=== PATIENT | male | born 1935 | race Caucasian/White ===

== ENCOUNTER 2016-10-12 17:01 | Emergency (ER) | payer OTHER ==
[~2016-10-12] VITALS: Ht 193 cm; Wt 120.0 kg
[~2016-10-12 17:01] MED LIST: ALLO300T2 PO; ASPI325T PO; DHEA50CA3 PO; DIGO0.12 PO; ENOX40P SQ; HYDR-3580 PO; KLOR20TA6 PO; LACT PO; LEVA500T PO; METO50CR PO; OMEP20TA PO; PERI8.6T PO; PRAD150C PO; TAMS0.4C67 PO; TORS1TAB12 PO; TREN400T PO
[2016-10-12 17:03] VITALS: BP 129/79; PULSE 68; RESP 20; TEMP 98; O2SAT 95
--- NOTE | 2016-10-12 17:09 | PD ---
Physical Exam Date Seen by Provider: Oct 12, 2016 Time Seen by Provider: 17:07 Narrative 81 yo male here for eval of fall. Happened yesterday. Hit head with no LOC. Takes Blood thinners. Concern about bleed secondary to headache. Pain is to the back of the head. No other symptoms. Pain is 6/10. Vitals are stable in triage. Awaiting bed placement. Data Data Last Documented VS Vital Signs Date Time Temp Pulse Resp B/P Pulse Ox O2 Delivery O2 Flow Rate FiO2 10/12/16 17:03 98.0 68 20 129/79 95 Room Air [facility] Medical Record Reviewed: Yes Supervised Visit with ANNE: No Roly Mata Oct 12, 2016 17:09
[2016-10-12] MEDS ORDERED: TRAM50TA PO (17:37)
[2016-10-12] MEDS ORDERED: APIX5TAB PO (17:37)
[2016-10-12] MEDS ORDERED: OXYC1TAB63 PO (17:39)
--- NOTE | 2016-10-12 17:39 | PD ---
HPI Chief Complaint: Fall Time Seen by Provider: 17:37 Travel History International Travel<30 days: No Contact w/Intl Traveler<30days: No Traveled to known affect area: No History of Present Illness HPI 81-year-old male presents to the emergency department for evaluation after a trip and fall that occurred yesterday. He states he was on a ladder and missed the last step. He states he landed on his butt, but then rolled over and hit his head against the refrigerator. He denies LOC. He does have abrasion to the top of his scalp. He states his tetanus immunization is within 5 years. Patient does complain of some midline neck pain as well. He denies any back pain. No chest pain or abdominal pain. No shortness of breath. He denies any hip or pelvic pain. He is on our questions and is concerned so he came the emergency department for evaluation. PFSH Past Medical History Hx Anticoagulant Therapy: Yes Arthritis: Yes Atrial Fibrillation: Yes Anxiety: Yes Heart Rhythm Problems: Yes (AFIB) Cancer: Yes (PROSTATE) Cardiovascular Problems: Yes (A. FIB) High Cholesterol: Yes Congestive Heart Failure: Yes (PT DENIES but hx says yes?) Diabetes: No Diminished Hearing: No Endocrine: No Gastrointestinal Disorders: Yes GERD: Yes Gout: Yes Genitourinary: Yes (PROSTATE(CA with seeds)) Hypertension: Yes Implanted Vascular Access Dvce: No Musculoskeletal: Yes Neurologic: No Psychiatric: Yes Respiratory: No Immunizations Current: No Radiation Therapy: Yes (2008 last treatment) Tetanus Vaccination: < 5 Years Influenza Vaccination: Yes (2016) PNEUMOCCOCAL Vaccine (Year): 1 Past Surgical History Abdominal Surgery: Yes (INTESTINAL BLOCKAGE 2013) Appendectomy: Yes (1979) Body Medical Devices: hx prostate CA with seeds Cholecystectomy: Yes (2006) Eye Surgery: Yes (CATARACT) Genitourinary Surgery: Yes (PROSTATE SEEDS) Joint Replacement: Yes (L KNEE REPLACEMENT 2008, R KNEE DEBRIDEMENT 2015) Tonsillectomy: Yes (1942) Other Surgery: Yes (CANCEROUS SWEAT GLAND REMOVED ) Social History Alcohol Use: Yes (ONE BEER A WEEK) Tobacco Use: No Substance Use: No Allergies-Medications (Allergen,Severity, Reaction): Coded Allergies: No Known Allergies (Verified , 10/12/16) Reported Meds & Prescriptions Reported Meds & Active Scripts Active Reported Torsemide 20 Mg Tab 20 Mg PO DAILY PRN Aspirin 325 Mg Tab 325 Mg PO DAILY Allopurinol 300 Mg Tab 300 Mg PO DAILY Digoxin 0.125 Mg Tab 0.125 Mg PO DAILY Omeprazole 20 Mg Tab 20 Mg PO DAILY Tamsulosin (Tamsulosin HCl) 0.4 Mg Cap 0.4 Mg PO HS Metoprolol Succinate ER 24 HR (Metoprolol Succinate) 50 Mg Tab 50 Mg PO BID Oxycodone-Acetaminophen 5-325 mg Tab 0.5 Tab PO Q4H PRN Tramadol (Tramadol HCl) 50 Mg Tab 50 Mg PO Q4H Eliquis (Apixaban) 5 Mg Tab 5 Mg PO BID Review of Systems Except as stated in HPI: all other systems reviewed are Neg Physical Exam Narrative GENERAL: Well-nourished, well-developed elderly male patient, afebrile. SKIN: Focused skin assessment warm/dry. Patient has abrasion to the top of his scalp. HEAD: Normocephalic. EYES: No scleral icterus. No injection or drainage. NECK: Supple, trachea midline. No JVD or lymphadenopathy. CARDIOVASCULAR: Regular rate and rhythm without murmurs, gallops, or rubs. RESPIRATORY: Breath sounds equal bilaterally. No accessory muscle use. Lungs sounds are clear to auscultation. GASTROINTESTINAL: Abdomen soft, non-tender, nondistended. MUSCULOSKELETAL: No cyanosis, or edema. BACK: No without obvious deformity. No CVA tenderness. Patient has mild midline cervical spine tenderness to palpation. No other midline spinal tenderness noted. Data Data Last Documented VS Vital Signs Date Time Temp Pulse Resp B/P Pulse Ox O2 Delivery O2 Flow Rate FiO2 10/12/16 17:03 98.0 68 20 129/[address] Brain W/O Iv Contrast(Rout) (10/12/16 ) Ct Cerv Spine W/O Contrast (10/12/16 ) Apply Cervical Collar (10/12/16 17:35) Collar Merrick (10/12/16 ) MDM Medical Decision Making Medical Screen Exam Complete: Yes Emergency Medical Condition: Yes Medical Record Reviewed: Yes Interpretation(s) Last Impressions Head CT 10/12/16 0000 Signed Impressions: Service Date/Time: Monday, October 12, 2016 18:08 - CONCLUSION: No acute intracranial injuries Bharat Starr MD Cervical Spine CT 10/12/16 0000 Signed Impressions: Service Date/Time: Wednesday, October 12, 2016 18:08 - CONCLUSION: No acute bony injury in the cervical spine. Bharat Starr MD Differential Diagnosis Closed head injury versus intracranial abnormality versus skull fracture versus cervical strain versus cervical fracture Narrative Course 81-year-old male presents to the emergency department for evaluation after he tripped and fell, hitting his head. He is on anticoagulants. CT of the brain and cervical spine are ordered and pending. Cervical collar is applied. CT of the brain shows no acute intracranial injuries. CT of the cervical spine shows no acute bony injury in the cervical spine. Cervical collar is removed. Patient is offered pain medication, but declines at this time. Patient is reassured and would like to go home. The patient was discharged in stable condition with instructions, including return instructions and follow up instructions. Diagnosis Primary Impression: Closed head injury Qualified Code: S09.90XA - Closed head injury, initial encounter Additional Impression: Scalp abrasion Qualified Code: S00.01XA - Scalp abrasion, initial encounter Referrals: Primary Care Physician call for appointment Patient Instructions: Abrasion (ED), General Instructions, Head Injury (ED) Additional Instructions: Clean abrasion twice daily with soap and water and apply [id number] antibiotic ointment. Follow-up with your primary care physician. Return to the emergency department for any acute worsening of symptoms. Med/Other Pt SpecificInfo: No Change to Meds Disposition: 01 DISCHARGE HOME Condition: Stable Eduarda Hart ANITA Oct 12, 2016 17:39
[2016-10-12] MEDS ORDERED: OMEP20TA PO (17:47)
[2016-10-12] MEDS ORDERED: ALLO300T2 PO (17:47)
[2016-10-12] MEDS ORDERED: ASPI325T PO (17:47)
[2016-10-12] MEDS ORDERED: METO50TA11 PO (17:47)
[2016-10-12] MEDS ORDERED: TAMS0.4C4 PO (17:47)
[2016-10-12] MEDS ORDERED: DIGO0.12 PO (17:47)
[2016-10-12] MEDS ORDERED: TORS20TA PO (17:47)
--- NOTE | 2016-10-12 18:18 | RADRPT ---
EXAM DATE/TIME: 10/12/2016 18:08 [facility] COMPARISON: CT BRAIN W/O CONTRAST, December 16, 2012, 18:56. INDICATIONS : Trauma. Fall. RADIATION DOSE: 37.17 CTDIvol (mGy) MEDICAL HISTORY : Cardiovascular disease. Hypertension. Carcinoma, prostate. SURGICAL HISTORY : None. ENCOUNTER: Initial ACUITY: 1 day PAIN SCALE: 5/10 LOCATION: cranial TECHNIQUE: Multiple contiguous axial images were obtained of the head. Using automated exposure control and adj ustment of the mA and/or kV according to patient size, radiation dose was kept as low as reasonably a chievable to obtain optimal diagnostic quality images. DICOM format image data is available electro nically for review and comparison. FINDINGS: Personal lacunar infarct in the right lentiform nucleus. Patchy mild diminished attenuation in perive ntricular white matter which appears chronic. There is no evidence of intracranial mass or hemorrhage . There is nothing to suggest acute infarction. The extracranial structures are benign and intact. No evidence of skull fracture. CONCLUSION: No acute intracranial injuries Bharat Starr MD on October 12, 2016 at 18:14 Board Certified Radiologist. This report was verified electronically.
--- NOTE | 2016-10-12 18:26 | RADRPT ---
EXAM DATE/TIME: 10/12/2016 18:08 [facility] COMPARISON: No previous studies available for comparison. INDICATIONS : Trauma. Fall. RADIATION DOSE: 21.56 CTDIvol (mGy) MEDICAL HISTORY : Cardiovascular disease. Hypertension. Carcinoma, prostate. SURGICAL HISTORY : None. ENCOUNTER: Initial ACUITY: 1 day PAIN SCALE: 5/10 LOCATION: neck TECHNIQUE: Volumetric scanning of the cervical spine was performed. Multiplanar reconstructions in the sagittal, coronal and oblique axial planes were performed. Using automated exposure control and adjustment o f the mA and/or kV according to patient size, radiation dose was kept as low as reasonably achievable to obtain optimal diagnostic quality images. DICOM format image data is available electronically f or review and comparison. FINDINGS: The cervical spine alignment is satisfactory. There is no evidence of cervical spine fracture. No bon y canal or foraminal stenosis is noted. There is mild degenerative changes small predominantly ventra l endplate osteophytes at multiple levels. Mild posterior facet arthropathy at multiple levels. No ev idence of paraspinal hematoma. CONCLUSION: No acute bony injury in the cervical spine. Bharat Starr MD on October 12, 2016 at 18:20 Board Certified Radiologist. This report was verified electronically.
== END 2016-10-12 18:54 | disposition home or self-care (01) ==
LOC: NEPD 17:01
DX: S09.90XA Unspecified injury of head, initial encounter (principal); S00.01XA Abrasion of scalp, initial encounter; M54.2 Cervicalgia; I10 Essential (primary) hypertension; E78.00 Pure hypercholesterolemia, unspecified; W11.XXXA Fall on and from ladder, initial encounter; Z79.01 Long term (current) use of anticoagulants; Z87.39 Personal history of other diseases of the musculoskeletal system and connective tissue; Z86.79 Personal history of other diseases of the circulatory system; Z86.59 Personal history of other mental and behavioral disorders; Z87.19 Personal history of other diseases of the digestive system; Z87.438 Personal history of other diseases of male genital organs
CPT/HCPCS: 70450; 72125; 99284; L0150

== ENCOUNTER 2017-05-14 10:50 | Emergency (ER) | payer OTHER ==
[~2017-05-14 10:50] MED LIST changes: +APIX5TAB PO; +ASPI-183 PO; -ASPI325T PO; -DHEA50CA3 PO; -ENOX40P SQ; -HYDR-3580 PO; -KLOR20TA6 PO; -LACT PO; -LEVA500T PO; +METO1TAB9 PO; -METO50CR PO; -OMEP20TA PO; +OMEP20TA93 PO; +OXYC1TAB63 PO; -PERI8.6T PO; -PRAD150C PO; +TAMS0.4C4 PO; -TAMS0.4C67 PO; -TORS1TAB12 PO; +TORS20TA PO; +TRAM50TA PO; -TREN400T PO
--- NOTE | 2017-05-14 11:47 | PD ---
HPI Chief Complaint: Respiratory Symptoms Time Seen by Provider: 11:47 Travel History International Travel<30 days: No Contact w/Intl Traveler<30days: No Traveled to known affect area: No History of Present Illness HPI 81-year-old male came to the emergency room with his with history of cough , headache, generalized weakness and mild fever for past 3 days. Patient says last year he had something similar which he did not initially come in to be seen and turned out to be a nasty pneumonia after week and hence he wanted to be more proactive this time. Patient's oxygen saturation was 92% on room air. No history of asthma or COPD. He is not a smoker. He does not require oxygen at home. No history of vomiting or diarrhea. He is awake and answering questions appropriately. Does not appear to be in any significant distress. Patient has history of atrial fibrillation and is on Eliquis. [facility] Past Medical History Narrative Medical List of his past medical, surgical, social and family history is reviewed from the nursing note. Hx Anticoagulant Therapy: Yes Arthritis: Yes Atrial Fibrillation: Yes Anxiety: Yes Heart Rhythm Problems: Yes (AFIB) Cancer: Yes (PROSTATE) Cardiovascular Problems: Yes (A. FIB) High Cholesterol: Yes Congestive Heart Failure: Yes (PT DENIES but hx says yes?) Diabetes: No Diminished Hearing: No Endocrine: No Gastrointestinal Disorders: Yes GERD: Yes Gout: Yes Genitourinary: Yes (PROSTATE(CA with seeds)) Hypertension: Yes Implanted Vascular Access Dvce: No Musculoskeletal: Yes Neurologic: No Psychiatric: Yes Respiratory: No Immunizations Current: No Radiation Therapy: Yes (2008 last treatment) PNEUMOCCOCAL Vaccine (Year): 1 Past Surgical History Abdominal Surgery: Yes (INTESTINAL BLOCKAGE 2013) Appendectomy: Yes (1979) Body Medical Devices: hx prostate CA with seeds Cholecystectomy: Yes (2006) Eye Surgery: Yes (CATARACT) Genitourinary Surgery: Yes (PROSTATE SEEDS) Joint Replacement: Yes (L KNEE REPLACEMENT 2008, R KNEE DEBRIDEMENT 2015) Tonsillectomy: Yes (1942) Other Surgery: Yes (CANCEROUS SWEAT GLAND REMOVED ) Social History Alcohol Use: Yes (ONE BEER A WEEK) Tobacco Use: No Substance Use: No Allergies-Medications (Allergen,Severity, Reaction): Coded Allergies: No Known Allergies (Verified Allergy, Unknown, 05/14/17) Comments No known drug allergies. Reported Meds & Prescriptions Reported Meds & Active Scripts Active Tamiflu (Oseltamivir Phosphate) 75 Mg Cap 75 Mg PO BID 5 Days Ventolin Hfa 18 GM Inh (Albuterol Sulfate) 90 Mcg/Act Aer 2 Puff INH Q4-6H PRN Reported Torsemide 20 Mg Tab 20 Mg PO DAILY PRN Aspirin 325 Mg Tab 325 Mg PO DAILY Allopurinol 300 Mg Tab 300 Mg PO DAILY Digoxin 0.125 Mg Tab 0.125 Mg PO DAILY Omeprazole 20 Mg Tab 20 Mg PO DAILY Tamsulosin (Tamsulosin HCl) 0.4 Mg Cap 0.4 Mg PO HS Metoprolol Succinate ER 24 HR (Metoprolol Succinate) 50 Mg Tab 50 Mg PO BID Oxycodone-Acetaminophen 5-325 mg Tab 0.5 Tab PO Q4H PRN Tramadol (Tramadol HCl) 50 Mg Tab 50 Mg PO Q4H Eliquis (Apixaban) 5 Mg Tab 5 Mg PO BID Narrative Medication List of his home medications reviewed from the nursing note. Review of Systems Except as stated in HPI: all other systems reviewed are Neg Respiratory: Positive: Cough Physical Exam Narrative GENERAL: Awake, alert, obese, mild to moderate distress SKIN: Focused skin assessment warm/dry. HEAD: Atraumatic. Normocephalic. EYES: Pupils equal and round. No scleral icterus. No injection or drainage. ENT: No nasal bleeding or discharge. Mucous membranes pink and moist. NECK: Trachea midline. No JVD. CARDIOVASCULAR: Regular rate and rhythm. No murmur appreciated. RESPIRATORY: No accessory muscle use. End expiratory wheeze GASTROINTESTINAL: Abdomen soft, non-tender, nondistended. Hepatic and splenic margins not palpable. MUSCULOSKELETAL: No obvious deformities. No clubbing. No cyanosis. No edema. NEUROLOGICAL: Awake and alert. No obvious cranial nerve deficits. Motor grossly within normal limits. Normal speech. PSYCHIATRIC: Appropriate mood and affect; insight and judgment normal. Data Data Last Documented VS Vital Signs Date Time Temp Pulse Resp B/P (MAP) Pulse Ox O2 Delivery O2 Flow Rate FiO2 05/14/17 14:29 95 05/14/17 14:25 16 Room Air 05/14/17 14:07 81 2.00 05/14/17 13:00 99.0 Orders Orders Complete Blood Count With Diff (05/14/17 11:53) Basic Metabolic Panel (Bmp) (05/14/17 11:53) B-Type Natriuretic Peptide (05/14/17 11:53) Prothrombin Time / Inr (Pt) (05/14/17 11:53) Troponin I (05/14/17 11:53) Influenzae A/B Antigen (05/14/17 11:53) Blood Culture (05/14/17 11:53) Iv Access Insert/Monitor (05/14/17 11:53) Electrocardiogram (05/14/17 11:53) Ecg Monitoring (05/14/17 11:53) Oximetry (05/14/17 11:53) Oxygen Administration (05/14/17 11:53) Chest, Single Ap (05/14/17 11:53) Sodium Chloride 0.9% Flush (Ns Flush) (05/14/17 12:00) Methylprednisolone So Succ Inj (Solumedr (05/14/17 12:00) Albuterol-Ipratropium Neb (Duoneb Neb) (05/14/17 12:00) Oseltamivir (Tamiflu) (05/14/17 13:00) Ed Discharge Order (05/14/17 14:09) Labs Laboratory Tests Test 05/14/17 12:05 White Blood Count 4.7 TH/MM3 Red Blood Count 4.17 MIL/MM3 Hemoglobin 12.6 GM/DL Hematocrit 38.8 % Mean Corpuscular Volume 93.1 FL Mean Corpuscular Hemoglobin 30.3 PG Mean Corpuscular Hemoglobin Concent 32.5 % Red Cell Distribution Width 16.2 % Platelet Count 133 TH/MM3 Mean Platelet Volume 8.4 FL CBC Comment AUTO DIFF Differential Total Cells Counted 100 Neutrophils % (Manual) 38 % Band Neutrophils % 14 % Lymphocytes % 20 % Monocytes % 28 % Neutrophils # (Manual) 2.4 TH/MM3 Differential Comment FINAL DIFF MANUAL Platelet Estimate LOW Platelet Morphology Comment NORMAL Red Cell Morphology Comment NORMAL Prothrombin Time 11.2 SEC Prothromb Time International Ratio 1.1 RATIO Blood Urea Nitrogen 12 MG/DL Creatinine 0.57 MG/DL Random Glucose 91 MG/DL Calcium Level 8.0 MG/DL Sodium Level 136 MEQ/L Potassium Level 4.2 MEQ/L Chloride Level 103 MEQ/L Carbon Dioxide Level 25.5 MEQ/L Anion Gap 8 MEQ/L Estimat Glomerular Filtration Rate 138 ML/MIN Troponin I LESS THAN 0.02 NG/ML B-Type Natriuretic Peptide 104 PG/ML MDM Medical Decision Making Medical Screen Exam Complete: Yes Emergency Medical Condition: Yes Medical Record Reviewed: Yes Interpretation(s) Twelve-lead EKG was reviewed by me. A. fib, normal axis. Heart rate of 62 bpm. Differential Diagnosis Pneumonia, influenza, viral illness, congestive heart failure Narrative Course 12:59 PM blood test results of back and within acceptable limits. Chest x-rays negative. Influenza is positive. Patient was given 2 DuoNeb times and Tamiflu. 2:05 PM the manual differential with was pending just got read. The differential seems little confusing since patient has normal neutrophil counts but elevated bands and also high monocyte count. The total WBC count is within acceptable limits. I was told that the lab person had spilled some stain and I' m wondering if the bandemia recorded is an error. I'm comfortable discharging this patient home. I'll ask him to follow up with his primary care in 1-2 days or return if symptoms worsen. The chest x-ray does not show any infiltrate. He will go home with prescription for Tamiflu. Procedures EKG Prior to Arrival: No Diagnosis Primary Impression: Cough Additional Impression: Influenza A Referrals: Primary Care Physician 2 days Additional Instructions: Please return to the ER if condition worsens or any other new concerns. Take albuterol inhaler 2 puffs every 4-6 hours till your coughing improves. Take the medication as per the prescription direction. Follow-up with her primary care in 2 days. Med/Other Pt SpecificInfo: Prescription(s) given Scripts Oseltamivir (Tamiflu) 75 Mg Cap 75 MG PO BID for Mgmt Viral Infection for 5 Days, #10 CAP 0 Refills Prov: Danica Salguero MD 05/14/17 Albuterol 18 GM Inh (Ventolin Hfa 18 GM Inh) 90 Mcg/Act Aer 2 PUFF INH Q4-6H Y for SHORTNESS OF BREATH, #1 INHALER 0 Refills Prov: Danica Salguero MD 05/14/17 Disposition: 01 DISCHARGE HOME Condition: Stable Danica Salguero MD May 14, 2017 11:47
[2017-05-14 12:00] VITALS: O2SAT 94
[2017-05-14] MEDS ORDERED: SODIUM CHLORIDE 0.9% FLUSH 10 ML FLUSH IVF PRN (12:00)
[2017-05-14] MEDS ORDERED: methylPREDNISolone SOD SUCC 125 MG/2 ML VIAL IV PUSH ONE (12:00)
[2017-05-14] MEDS: RESP: ALBUTEROL 2.5 MG/IPRATROPIUM 0.5 MG NEB (SCH) INH (12:11)
--- NOTE | 2017-05-14 12:19 | RADRPT ---
EXAM DATE/TIME: 05/14/2017 12:00 [facility] COMPARISON: CHEST SINGLE AP, October 10, 2015, 10:21. INDICATIONS : Cough, fever MEDICAL HISTORY : A Fib SURGICAL HISTORY : None. ENCOUNTER: Initial ACUITY: 3 days PAIN SCORE: 0/10 LOCATION: Bilateral chest FINDINGS: One cardiomegaly. The pulmonary vasculature is appears normal in caliber. There is stable mild promin ence of the right hilum unchanged from prior exam. The lungs are grossly clear. CONCLUSION: No acute disease. Brook Chatman MD on May 14, 2017 at 12:16 Board Certified Radiologist. This report was verified electronically.
[2017-05-14 12:29] LABS: HEMATOCRIT 38.8 % (39.0-51.0); HEMOGLOBIN 12.6 GM/DL (13.0-17.0); MEAN CELL VOLUME 93.1 FL (80.0-100.0); MEAN CORPUSCULAR HEMOGLOBIN 30.3 PG (27.0-34.0); MEAN CORPUSCULAR HGB CONC 32.5 % (32.0-36.0); MEAN PLATELET VOLUME 8.4 FL (7.0-11.0); PLATELET COUNT 133 TH/MM3 (150-450); RED BLOOD COUNT 4.17 MIL/MM3 (4.50-5.90); RED CELL DISTRIBUTION WIDTH 16.2 % (11.6-17.2); WHITE BLOOD COUNT 4.7 TH/MM3 (4.0-11.0)
[2017-05-14 12:30] VITALS: BP 123/58; PULSE 70; RESP 16; O2SAT 91
[2017-05-14 12:41] LABS: CHLORIDE 103 MEQ/L (98-107); SODIUM (NA) 136 MEQ/L (136-145)
[2017-05-14 12:44] LABS: BICARBONATE 25.5 MEQ/L (21.0-32.0); BLOOD UREA NITROGEN 12 MG/DL (7-18); GLUCOSE,RANDOM 91 MG/DL (74-106)
[2017-05-14 12:45] LABS: INTERNATIONAL NORMALIZED RATIO 1.1 RATIO; PROTHROMBIN TIME - PATIENT 11.2 SEC (9.8-11.6)
[2017-05-14 12:47] LABS: CREATININE 0.57 MG/DL (0.60-1.30); GLOMERULAR FILTRATION RATE 138 ML/MIN (>89)
[2017-05-14 12:52] LABS: TROPONIN I LESS THAN 0.02 NG/ML (0.02-0.05)
[2017-05-14 13:00] VITALS: BP 117/64; PULSE 80; RESP 16; TEMP 99; O2SAT 94
[2017-05-14] MEDS ORDERED: OSELTAMIVIR PHOSPHATE 75 MG CAP PO ONE (13:00)
[2017-05-14 13:54] LABS: BANDS 14 % (0-6); LYMPHOCYTES 20 % (9-44); MONOCYTES 28 % (0-8); NEUTROPHIL # MANUAL DIFF 2.4 TH/MM3 (1.8-7.7); POLYS (SEG NEUTROPHILS) 38 % (16-70)
[2017-05-14 14:07] VITALS: BP 115/55; PULSE 81; RESP 16; O2SAT 97
[2017-05-14] MEDS ORDERED: VENTAER INH (14:08)
[2017-05-14] MEDS ORDERED: OSEL75 PO (14:08)
[2017-05-14 14:25] VITALS: RESP 16; O2SAT 95
--- NOTE | 2017-05-15 19:04 | EKG ---
Date Performed: 05/14/2017 Time Performed: 11:58:59 PTAGE: 81 years EKG: ATRIAL FIBRILLATION WITH ABERRANT CONDUCTION OR VENTRICULAR PREMATURE COMPLEXES Since previ ous tracing, no significant change noted ABNORMAL RHYTHM ECG PREVIOUS TRACING : 10/08/2015 00.36 DOCTOR: Chris Marie Interpretating Date/Time 05/15/2017 19:02:03
== END 2017-05-14 14:33 | disposition home or self-care (01) ==
LOC: PHED 10:50
DX: R05 Cough (principal); J10.1 Influenza due to other identified influenza virus with other respiratory manifestations; I48.91 Unspecified atrial fibrillation; I11.0 Hypertensive heart disease with heart failure; R53.1 Weakness; Z79.01 Long term (current) use of anticoagulants
CPT/HCPCS: 71045; 80048; 83880; 84484; 85007; 85027; 85610; 87040; 87804; 93005; 94640; 94664; 96374; 99285; J2930